=== PATIENT | male | born 1990 | race Hispanic/Latino ===

== ENCOUNTER 2017-12-13 16:04 | Emergency (ER) | payer BC ==
[~2017-12-13] VITALS: Ht 172.7 cm; Wt 86.2 kg
[2017-12-13 16:33] VITALS: BP 136/74
== END 2017-12-13 16:37 | disposition home or self-care (01) ==
LOC: FSED 16:04
DX: S05.01XA Injury of conjunctiva and corneal abrasion without foreign body, right eye, initial encounter (principal)
CPT/HCPCS: 99283

== ENCOUNTER 2018-01-18 19:51 | Emergency (ER) | payer BC ==
[~2018-01-18] VITALS: Ht 172.7 cm; Wt 86.2 kg
== END 2018-01-18 20:39 | disposition left against medical advice (07) ==
LOC: FSED 19:51
DX: R10.33 Periumbilical pain (principal)